=== PATIENT | male | born 1980 | race Caucasian/White ===

== ENCOUNTER 2025-04-02 01:28 | Day surgery (SDC) | payer BC, SELFPAY ==
[2025-03-29 13:52] VITALS: BMI 32.5
--- OUTSIDE RECORDS SUMMARY | 2025-04-02 01:31 | XMS_ITS | Clinical Summary ---
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 Gender Identity Not on file Sexual Orientation Not on file Plan of Treatment Health Maintenance Due Date Last Done Comments Hepatitis C Virus (HCV) Screening 1982 TdaP Immunization 1982 Hepatitis B Immunization (1 of 3 - 19+ 3-dose series) 2001 Human Papillomavirus (HPV) Immunization (1 - 3-dose SCDM series) 2009 Influenza Immunization (#1) 2024 03/16/2020 SARS-COV-2 Immunization ( season) 2024 08/01/2020, 07/11/2020 Respiratory Syncytial Virus (RSV) Immunization (Adult) (1 - 1-dose 75+ series) 2057 Meningococcal Immunization (ACWY) Aged Out No longer eligible b ased on patient's age to complete this topic Pneumococcal Immunization Combined Aged Out No longer eligible b ased on patient's age to complete this topic Rotavirus Immunization Aged Out No lo nger eligible based on patient's age to complete this topic
--- OUTSIDE RECORDS SUMMARY | 2025-04-02 01:31 | XMS_ITS | Clinical Summary ---
Author Organization [facility] Address [address] [place] [address] Care Team Providers Care Debeaker Name Role Phone Jose Alegria MD Primary Care Provider [phone] Allergies No known active allergies Medications allopurinoL (ZYLOPRIM) 100 mg tablet Take 100 mg by mouth daily 11/26/2020 Active ergocalciferol (VITAMIN D) 50,000 unit capsule TAKE 1 CAPSULE BY MOUTH 1 TIME WEEKLY 11/29/2020 Active escitalopram (LEXAPRO) 10 mg tablet Take 10 mg by mouth daily 11/08/2020 Active ibuprofen (ADVIL,MOTRIN) 800 mg tablet TAKE 1 TABLET BY MOUTH THREE TIMES DAILY WITH FOOD NEEDED 12/29/2020 Active lisinopriL (PRINIVIL,ZESTR IL) 40 mg tablet Active Active Problems No known active problems Social History Tobacco Use Types Packs/Day Years Used Date Smoking Tobacco: Never Assessed Sex and Gender Information Value Date Recorded Sex Assigned at Not on file Legal Sex Male 9:24 AM CDT Gender Identity Not on file Sexual Orientation Not on file Last Filed Vital Signs Vital Sign Reading Time Taken Comments Blood Pressure 128/90 01/06/2021 10:47 AM CDT Pulse 100 01/06/2021 10:47 AM CDT Temperature 36.9 C (98.4 F) 01/06/2021 10:47 AM CDT Respiratory Rate 20 01/06/2021 10:47 AM CDT Oxygen Saturation 96% 01/06/2021 10:47 AM CDT Inhaled Oxygen Concentration - - Weight 117.9 kg (260 lb) 01/06/2021 10:47 AM CDT Height 190.5 cm (6' 3) 01/06/2021 10:47 AM CDT Body Mass Index 32.5 01/06/2021 10:47 AM CDT Plan of Treatment Not on file Insurance [employer] [place] [employer] [place] Care Teams Debeaker Relationship Specialty Start Date End Date Jose Alegria MD PCP - General 12/05/18
--- NOTE | 2025-04-02 08:37 | WPDANESEPPF ---
Anes - Initial Pre Proc Eval Procedure: Operation Date: 04/02/25 10:00 Proposed Procedures p Screening Colonoscopy - Navid Grant MD Date/Time: 04/02/25 08:37 Surgeon: Navid Grant MD Pre Op Diagnosis: Screening Patient Data Age: 44 Gender: M Height: 1.91 m Weight: 117.93 kg Allergies Allergy/AdvReac Type Severity Reaction Status Date / Time No Known Allergies Allergy Verified 04/02/25 08:35 Home Medications ?Medication ?Instructions ?Recorded ?Confirmed ?Type allopurinol 100 mg tablet 100 mg PO DAILY 03/29/25 04/02/25 History atorvastatin 20 mg tablet 20 mg PO DAILY 03/29/25 04/02/25 History doxycycline monohydrate 50 mg 50 mg PO BID 03/29/25 04/02/25 History capsule emtricitabine 200 mg-tenofovir 1 tablet PO DAILY 03/29/25 04/02/25 History alafenamide fumarate 25 mg tablet (Descovy) ergocalciferol (vitamin D2) 1,250 1,250 mcg PO WEEKLY 03/29/25 04/02/25 History mcg (50,000 unit) capsule escitalopram oxalate 10 mg tablet 10 mg PO DAILY 03/29/25 04/02/25 History fenofibrate nanocrystallized 145 145 mg PO DAILY 03/29/25 04/02/25 History mg tablet lisinopril 40 mg tablet 40 mg PO DAILY 03/29/25 04/02/25 History semaglutide (weight loss) 2.4 2.4 mg subcut WEEKLY 03/29/25 04/02/25 History mg/0.75 mL subcutaneous pen injector (Wegovy) sildenafil 100 mg tablet 100 mg PO DAILY PRN ED 03/29/25 04/02/25 History testosterone cypionate 200 mg/mL 200 mg subcut WEEKLY 03/29/25 03/29/25 History intramuscular oil thyroid (pork) 30 mg tablet (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 [facility] Past Medical History Medical History (Updated 04/01/25 @ 10:39 by Kendall Tran DO) Asthma Hyperlipidemia Hypertension Social History Social History Smoking packs per day: 1 Smoking cigarettes per day: 20.0 Years smoked: 15 Smoking pack-years: 15.00 Smoking status: Former smoker Tobacco type: cigarettes Drinks per week: 8 Substance use: former Last use: 2016 Living arrangements: alone Spiritual care concerns: No Anes - Eval Final PreProcedure Day of Procedure 04/02/25 08:37 Patient weight: obese Heart: regular rate and rhythm Lungs: clear to auscultation Airway: Mallampati scale class II Neurological: alert and oriented Last oral intake: >/= 8 hours ASA classification: III Emergent: no Anesthetic plan: proceed Anesthesia type and monitoring: general GIVS and standard monitoring Results Review: All pre-operative results and documents have been reviewed as part of the pre-operative evaluation. Informed Consent: The patient's anesthetic plan and its attendant risks and benefits were discussed with the patient/family/POA. Questions were solicited and answers provided to the satisfaction of the patient/family/POA.
[2025-04-02 08:38] VITALS: BP 140/84; PULSE 81; RESP 20; TEMP 36.1; O2SAT 97; BMI 31.6
[2025-04-02] MEDS: LACTATED RINGERS 1,000 ML 150 ML IV CONT (08:47)
--- NOTE | 2025-04-02 09:21 | PM.HPGS ---
History of Present Illness History of Present Illness Consent: Risks, benefits, and alternatives have been discussed and questions answered. Patient agrees to proceed with procedure. Chief complaint: Screening Narrative: Eliseo Vyas is a 44 year old male here for first screening colonoscopy, grandfather had colon cancer Review of Systems Review of Systems: All systems reviewed & are unremarkable except as noted in HPI and below PMFSH Past Medical History Medical History (Updated 04/02/25 @ 09:22 by Navid Grant MD) Colon cancer screening Asthma Hyperlipidemia Hypertension Social History Social History Smoking packs per day: 1 Smoking cigarettes per day: 20.0 Years smoked: 15 Smoking pack-years: 15.00 Smoking status: Former smoker Tobacco type: cigarettes Drinks per week: 8 Substance use: former Last use: 2016 Living arrangements: alone Spiritual care concerns: No Meds Home Medications and Allergies Home Medications ?Medication ?Instructions ?Recorded ?Confirmed ?Type allopurinol 100 mg tablet 100 mg PO DAILY 03/29/25 04/02/25 History atorvastatin 20 mg tablet 20 mg PO DAILY 03/29/25 04/02/25 History doxycycline monohydrate 50 mg 50 mg PO BID 03/29/25 04/02/25 History capsule emtricitabine 200 mg-tenofovir 1 tablet PO DAILY 03/29/25 04/02/25 History alafenamide fumarate 25 mg tablet (Descovy) ergocalciferol (vitamin D2) 1,250 1,250 mcg PO WEEKLY 03/29/25 04/02/25 History mcg (50,000 unit) capsule escitalopram oxalate 10 mg tablet 10 mg PO DAILY 03/29/25 04/02/25 History fenofibrate nanocrystallized 145 145 mg PO DAILY 03/29/25 04/02/25 History mg tablet lisinopril 40 mg tablet 40 mg PO DAILY 03/29/25 04/02/25 History semaglutide (weight loss) 2.4 2.4 mg subcut WEEKLY 03/29/25 04/02/25 History mg/0.75 mL subcutaneous pen injector (Wegovy) sildenafil 100 mg tablet 100 mg PO DAILY PRN ED 03/29/25 04/02/25 History testosterone cypionate 200 mg/mL 200 mg subcut WEEKLY 03/29/25 03/29/25 History intramuscular oil thyroid (pork) 30 mg tablet (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 30 mg PO DAILY 03/29/25 04/02/25 History Thyroid) Allergies Allergy/AdvReac Type Severity Reaction Status Date / Time No Known Allergies Allergy Verified 04/02/25 08:35 Vital Signs Vital Signs - 24 hr 04/02/25 08:38 Temperature 97 F L Pulse Rate 81 Respiratory Rate 20 Blood Pressure 140/84 Pulse Oximetry 97 Oxygen Delivery Room Air Exam Const: General: comfortable and no acute distress HENMT: Face/Nose/Sinus: Normal nares present Eyes: General: appearance normal, both eyes and all related structures Neck: Neck: no JVD Resp: Auscultation: clear to auscultation bilaterally Cardio: Rate: regular rate Rhythm: regular rhythm GI: Inspection: non-distended GI Palp: Yes Soft to palpation Skin: General skin exam: normal color Extrem: General: normal to inspection Psych: Mental Status: mental status grossly normal Assessment and Plan Assessment and plan (1) Colon cancer screening: Code(s): Z12.11 - Encounter for screening for malignant neoplasm of colon Status: Acute Assessment and Plan: colonoscopy
[2025-04-02 09:36] VITALS: BP 121/72; PULSE 108; RESP 19; O2SAT 97
[2025-04-02 09:46] VITALS: BP 127/86; PULSE 91; RESP 19; O2SAT 97
[2025-04-02 09:56] VITALS: BP 132/84; PULSE 90; RESP 18; O2SAT 98
--- NOTE | 2025-04-02 10:11 | SUR.PHASEII ---
Pt recovered sitting up in recliner. 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
== END 2025-04-02 10:20 | disposition home or self-care (01) ==
PROVIDERS: Referring Provider Nurse Practitioner Family; Visit Provider Internal Medicine Gastroenterology
PROC: 0DJD8ZZ Inspection of Lower Intestinal Tract, Via Natural or Artificial Opening Endoscopic (ICD-10-PCS; CPT 45378; principal; 2025-04-02 10:00)
DX: Z12.11 Encounter for screening for malignant neoplasm of colon (principal); K64.8 Other hemorrhoids; K57.30 Diverticulosis of large intestine without perforation or abscess without bleeding; E78.5 Hyperlipidemia, unspecified; I10 Essential (primary) hypertension; J45.909 Unspecified asthma, uncomplicated; E66.9 Obesity, unspecified; Z68.31 Body mass index [BMI] 31.0-31.9, adult; Z79.85 Long-term (current) use of injectable non-insulin antidiabetic drugs; Z87.891 Personal history of nicotine dependence; Z80.0 Family history of malignant neoplasm of digestive organs
CPT/HCPCS: 45378; J2003; J2704; J7120